=== PATIENT | female | born 1985 | race Caucasian/White ===

== ENCOUNTER → 2021-02-12 | Outpatient (CLI) | payer OTHER ==
[~2021-02-12] MED LIST: ANTIVERT 25MG T25 MG PO; MACROBID 100 M100 MG PO; PEPCID40 MG PO; PREDNISONE 20 M20 MG PO; PYRIDIUM200 MG PO; ZOFRAN ODT 4 MG4 MG PO
== END ==
LOC: EXRD 13:45
DX: R22.1 Localized swelling, mass and lump, neck (principal)
CPT/HCPCS: 76536

== ENCOUNTER → 2021-03-13 | Outpatient (CLI) | payer OTHER | LOC: CT 03-11 08:30 | DX: R22.1 Localized swelling, mass and lump, neck (principal) | CPT/HCPCS: 70491; Q9963 ==

== ENCOUNTER → 2022-01-14 | Outpatient (CLI) | payer OTHER | LOC: EXRD 13:45 | DX: M79.605 Pain in left leg (principal); M79.89 Other specified soft tissue disorders | CPT/HCPCS: 93926; 93971 ==

== ENCOUNTER 2022-01-20 11:16 | Emergency (ER) | payer OTHER ==
[2022-01-20 12:15] LABS: HEMOGLOBIN 14.2 gm/dl (12.3-15.3); RED BLOOD COUNT 4.79 M/UL (4.00-5.10)
[2022-01-20 12:38] LABS: BUN/CREATININE RATIO 14 (0-10)
== END 2022-01-20 16:00 | disposition home or self-care (01) ==
LOC: ER1 11:16
PROVIDERS: Emergency Medicine
DX: M79.662 Pain in left lower leg (principal); R10.9 Unspecified abdominal pain; Z86.718 Personal history of other venous thrombosis and embolism; Z88.0 Allergy status to penicillin; Z88.5 Allergy status to narcotic agent
CPT/HCPCS: 80053; 84703; 85025; 85379; 93971; 99284; Q9967

== ENCOUNTER 2022-02-22 12:27 | Emergency (ER) | payer OTHER ==
[2022-02-22] MEDS ORDERED: HYDROCODON-ACE1 EAC4 PO (16:24)
== END 2022-02-22 16:30 | disposition home or self-care (01) ==
LOC: ER1 12:27
DX: S92.355A Nondisplaced fracture of fifth metatarsal bone, left foot, initial encounter for closed fracture (principal); S70.12XA Contusion of left thigh, initial encounter; S20.20XA Contusion of thorax, unspecified, initial encounter; Y04.2XXA Assault by strike against or bumped into by another person, initial encounter; Y92.009 Unspecified place in unspecified non-institutional (private) residence as the place of occurrence of the external cause
CPT/HCPCS: 72110; 72125; 72220; 73630; 99284

== ENCOUNTER → 2022-03-20 | Outpatient (CLI) | payer OTHER ==
[~2022-03-20] MED LIST changes: +HYDROCODON-ACE1 EAC4 PO
== END ==
LOC: KOH-I 15:55
DX: S92.352A Displaced fracture of fifth metatarsal bone, left foot, initial encounter for closed fracture (principal)
CPT/HCPCS: 73630

== ENCOUNTER 2022-03-31 21:35 | Emergency (ER) | payer OTHER | END 2022-03-31 23:29 | disposition home or self-care (01) | LOC: ER1 21:35 | DX: Z46.89 Encounter for fitting and adjustment of other specified devices (principal) | CPT/HCPCS: 99282 ==

== ENCOUNTER → 2022-04-21 | Outpatient (CLI) | payer OTHER | LOC: KOH-I 15:31 | DX: S92.352D Displaced fracture of fifth metatarsal bone, left foot, subsequent encounter for fracture with routine healing (principal) | CPT/HCPCS: 73630 ==

== ENCOUNTER → 2022-05-05 | Outpatient (CLI) | payer OTHER | LOC: MRI 08:30 | DX: G37.9 Demyelinating disease of central nervous system, unspecified (principal); R20.0 Anesthesia of skin; R53.1 Weakness | CPT/HCPCS: 70553; A9577 ==